=== PATIENT | male | born 1945 | race Caucasian/White ===

== ENCOUNTER → 2016-12-15 | Outpatient (CLI) | payer OTHER ==
[~2016-12-15] MED LIST: LEVA500T PO; LIPI10TA PO; NORV5TAB PO; TAMS0.4C67 PO; VENL75 PO
[2016-12-15 11:24] LABS: AUTOMATED NEUTROPHIL # 2.6 TH/MM3 (1.8-7.7); BASOPHIL % 0.9 % (0.0-2.0); EOSINOPHIL % 0.9 % (0.0-4.0); HEMATOCRIT 36.8 % (39.0-51.0); HEMO FLAGS DIFF FINAL; LYMPH % 32.4 % (9.0-44.0); LYMPHOCYTE # 1.5 TH/MM3 (1.0-4.8); MEAN CORPUSCULAR HEMOGLOBIN 31.3 PG (27.0-34.0); MEAN CORPUSCULAR HGB CONC 33.3 % (32.0-36.0); MONO % 11.1 % (0.0-8.0); NEUT % 54.7 % (16.0-70.0); PLATELET COUNT 221 TH/MM3 (150-450); RED BLOOD COUNT 3.92 MIL/MM3 (4.50-5.90); RED CELL DISTRIBUTION WIDTH 14.3 % (11.6-17.2); WHITE BLOOD COUNT 4.8 TH/MM3 (4.0-11.0)
[2016-12-15 11:56] LABS: ALKALINE PHOSPHATASE 71 U/L (45-117); ALT (GPT) 23 U/L (12-78); ANION GAP 8 MEQ/L (5-15); AST (GOT) 23 U/L (15-37); BICARBONATE 28.4 MEQ/L (21.0-32.0); BLOOD UREA NITROGEN 21 MG/DL (7-18); CHLORIDE 103 MEQ/L (98-107); GLOMERULAR FILTRATION RATE 46 ML/MIN (>89); GLUCOSE,FASTING 95 MG/DL (74-99); HDL CHOLESTEROL 62.1 MG/DL (40.0-60.0); LDL CHOLESTEROL 82 MG/DL (0-99); POTASSIUM 3.8 MEQ/L (3.5-5.1); SODIUM (NA) 139 MEQ/L (136-145); TOTAL BILIRUBIN ADULT 0.4 MG/DL (0.2-1.0)
[2016-12-15 14:20] LABS: HEMOGLOBIN A1a 1.4 %; HEMOGLOBIN A1b 0.7 %; HEMOGLOBIN F 0.9 %; HEMOGLOBIN LA1C 2.3 %; HEMOGLOBIN P3 3.8 %
== END ==
LOC: PLAB 08:41
PROVIDERS: ATTEND Family Medicine
DX: I12.9 Hypertensive chronic kidney disease with stage 1 through stage 4 chronic kidney disease, or unspecified chronic kidney disease (principal); N18.3 Chronic kidney disease, stage 3 (moderate); E78.5 Hyperlipidemia, unspecified
CPT/HCPCS: 36415; 80053; 80061; 83036; 84443; 85025

== ENCOUNTER → 2017-02-02 | Outpatient (CLI) | payer OTHER | LOC: PLAB 09:16 | PROVIDERS: ATTEND Urology | DX: C61 Malignant neoplasm of prostate (principal) | CPT/HCPCS: 84153 ==

== ENCOUNTER → 2017-02-13 | Outpatient (CLI) | payer OTHER ==
[2017-02-13 13:52] LABS: AUTOMATED NEUTROPHIL # 4.6 TH/MM3 (1.8-7.7); BASOPHIL % 0.6 % (0.0-2.0); EOSINOPHIL # 0.1 TH/MM3 (0-0.4); EOSINOPHIL % 0.8 % (0.0-4.0); HEMO FLAGS DIFF FINAL; LYMPH % 26.4 % (9.0-44.0); LYMPHOCYTE # 1.9 TH/MM3 (1.0-4.8); MEAN CELL VOLUME 93.2 FL (80.0-100.0); MEAN CORPUSCULAR HGB CONC 34.3 % (32.0-36.0); MONO % 10.1 % (0.0-8.0); NEUT % 62.1 % (16.0-70.0); PLATELET COUNT 239 TH/MM3 (150-450); RED BLOOD COUNT 3.75 MIL/MM3 (4.50-5.90); RED CELL DISTRIBUTION WIDTH 13.9 % (11.6-17.2); WHITE BLOOD COUNT 7.4 TH/MM3 (4.0-11.0)
[2017-02-13 13:58] LABS: BLOOD, URINE TRACE (NEG); GLUCOSE,URINE NEG (NEG); GRANULAR CAST, URINE 3 /lpf; HYALINE CAST, URINE 3 /lpf (RARE); KETONE, URINE NEG (NEG); MUCUS URINE FEW /lpf (OCC); NITRITE,URINE NEG (NEG); PH, URINE 5.5 (5.0-8.5); URINE COLOR YELLOW (YELLW/STRAW)
[2017-02-13 14:10] LABS: ANION GAP 7 MEQ/L (5-15); AST (GOT) 8 U/L (15-37); BICARBONATE 26.8 MEQ/L (21.0-32.0); BLOOD UREA NITROGEN 17 MG/DL (7-18); CHLORIDE 103 MEQ/L (98-107); GLOMERULAR FILTRATION RATE 50 ML/MIN (>89); GLUCOSE,FASTING 72 MG/DL (74-99); POTASSIUM 4.4 MEQ/L (3.5-5.1); SODIUM (NA) 137 MEQ/L (136-145); URIC ACID 6.1 MG/DL (2.6-7.2)
[2017-02-13 14:11] LABS: ALT (GPT) 14 U/L (12-78)
[2017-02-13 14:13] LABS: ALKALINE PHOSPHATASE 70 U/L (45-117); TOTAL BILIRUBIN ADULT 0.5 MG/DL (0.2-1.0)
[2017-02-13 14:15] LABS: AMYLASE 194 U/L (25-115)
== END ==
LOC: CLAB 12:45
PROVIDERS: ATTEND Family Medicine
DX: R10.9 Unspecified abdominal pain (principal); N18.3 Chronic kidney disease, stage 3 (moderate); R82.90 Unspecified abnormal findings in urine; Z51.81 Encounter for therapeutic drug level monitoring; Z87.39 Personal history of other diseases of the musculoskeletal system and connective tissue
CPT/HCPCS: 36415; 80053; 81001; 82150; 83690; 84550; 85025; 87086

== ENCOUNTER → 2017-02-18 | Outpatient (CLI) | payer OTHER ==
[2017-02-18 11:29] LABS: CHLORIDE 107 MEQ/L (98-107); POTASSIUM 4.6 MEQ/L (3.5-5.1); SODIUM (NA) 143 MEQ/L (136-145)
[2017-02-18 11:37] LABS: AMYLASE 63 U/L (25-115); ANION GAP 6 MEQ/L (5-15); BICARBONATE 30.2 MEQ/L (21.0-32.0); BLOOD UREA NITROGEN 24 MG/DL (7-18)
[2017-02-18 11:39] LABS: AST (GOT) 34 U/L (15-37)
[2017-02-18 11:40] LABS: ALT (GPT) 31 U/L (12-78); GLOMERULAR FILTRATION RATE 50 ML/MIN (>89); TOTAL BILIRUBIN ADULT 0.3 MG/DL (0.2-1.0)
[2017-02-18 11:42] LABS: ALKALINE PHOSPHATASE 69 U/L (45-117)
== END ==
LOC: PLAB 10:15
PROVIDERS: ATTEND Family Medicine
DX: R74.8 Abnormal levels of other serum enzymes (principal); K57.92 Diverticulitis of intestine, part unspecified, without perforation or abscess without bleeding; N18.3 Chronic kidney disease, stage 3 (moderate); Z51.81 Encounter for therapeutic drug level monitoring
CPT/HCPCS: 80053; 82150; 83690

== ENCOUNTER → 2017-05-13 | Outpatient (CLI) | payer OTHER ==
[~2017-05-13] VITALS: Ht 185.4 cm; Wt 82.4 kg
[~2017-05-13] MED LIST changes: +AMLO5TAB2 PO; +ATOR10TA15 PO; +CHLORHEXIDINE GLUCONATE 2 % 1 PACK (2 CLOTHS) TOPICAL PRN; +DEXTROSE 5% IN WATE 1000ML INJ 1,000 ML IV SCH; +INSULIN HUMAN REGULAR 1,000 UNITS/10 ML VIAL SQ PRN; +LACTATED RINGER'S 1000 ML IV PRN; -LEVA500T PO; -LIPI10TA PO; +METOPROLOL TARTRATE 25 MG TAB PO PRN; -NORV5TAB PO; +POVIDONE IODINE 5% (ANTISEPSIS KIT) 4 APPLICATIONS EACH NARE PRN; +PROPOFOL 200 MG/20 ML AMP IV PUSH ONE; +SODIUM CHLORID 0.9% 500 ML IV PRN; -TAMS0.4C67 PO; -VENL75 PO; +VENL75TA PO
--- NOTE | 2017-05-13 10:49 | PD.HP.UP ---
H&P Update Note The Pre-Admit History and Physical Examination regarding the above named patient was reviewed (including, but not limited to, vital signs, heart, lungs, co-morbid conditions), and upon re-examination it is noted that: the patient's condition has not significantly changed since the last examination. Evaristo Plaza MD May 13, 2017 10:49
[2017-05-13 13:10] VITALS: BP 131/78; PULSE 77; RESP 16; TEMP 97.2; O2SAT 99
--- NOTE | 2017-05-13 20:36 | EKG ---
Date Performed: 05/13/2017 Time Performed: 10:42:37 PTAGE: 71 years EKG: Sinus rhythm NORMAL ECG PREVIOUS TRACING : 08/16/2014 13.54 Compared to prior tracing no significant change DOCTOR: Sergio Willams Interpretating Date/Time 05/13/2017 20:35:11
--- NOTE | 2017-05-14 14:25 | MR ---
cc: MARQUIS GONZALEZ M.D., GEORGE MD DATE: May 13, 2017 PREOPERATIVE DIAGNOSIS History of polyps colon cancer screening. PROCEDURE Colonoscopy to cecum. POSTOPERATIVE DIAGNOSIS 1. Normal cecum, ileocecal valve. 2. Diverticulosis rectosigmoid left colon. 3. History of colon polyps. SURGEON Dr. Gonzalez PROCEDURE The patient was placed in the left lateral decubitus position. After adequate anesthesia sedation rectal exam confirmed the emptiness of rectal vault. Olympus colonoscope was introduced into rectum and advanced easily under direct vision to the proximal colon until the cecum was identified ileocecal valve was normal. There were no vascular maladies noted in the cecum. Colonoscope was then gradually withdrawn visualizing mucosal surface throughout the distal colon. No polyps seen. In the rectosigmoid there were some diverticulosis was some mild inflammatory changes but no luminal narrowing or obstruction. Some exudate was seen on the bowel, distal rectosigmoid appeared normal. The patient tolerated the procedure quite well and was brought to recovery room in stable condition. The sponge and needle counts were correct at the end of the procedure. MD MIRANDA Melara/cathy /1:54 PM /2:16 PM
--- NOTE | 2017-06-15 08:19 | HHI.PR ---
Subjective Remarks C/R Surg Pt stable post colonoscopy A/P Assessment and Plan Imp: Dc to home RTO 3 - 4 weeks Evaristo Plaza MD Jun 15, 2017 08:19
== END ==
LOC: HSDC 10:01
PROVIDERS: ATTEND Colon & Rectal Surgery
DX: Z12.11 Encounter for screening for malignant neoplasm of colon (principal); Z86.010 Personal history of colon polyps; K57.30 Diverticulosis of large intestine without perforation or abscess without bleeding; Z01.810 Encounter for preprocedural cardiovascular examination
CPT/HCPCS: 00810; 45378; 93005; J7120

== ENCOUNTER → 2018-01-20 | Outpatient (CLI) | payer OTHER ==
[~2018-01-20] MED LIST changes: -CHLORHEXIDINE GLUCONATE 2 % 1 PACK (2 CLOTHS) TOPICAL PRN; -DEXTROSE 5% IN WATE 1000ML INJ 1,000 ML IV SCH; -INSULIN HUMAN REGULAR 1,000 UNITS/10 ML VIAL SQ PRN; -LACTATED RINGER'S 1000 ML IV PRN; -METOPROLOL TARTRATE 25 MG TAB PO PRN; -POVIDONE IODINE 5% (ANTISEPSIS KIT) 4 APPLICATIONS EACH NARE PRN; -PROPOFOL 200 MG/20 ML AMP IV PUSH ONE; -SODIUM CHLORID 0.9% 500 ML IV PRN
[2018-01-20 13:47] LABS: AUTOMATED NEUTROPHIL # 2.2 TH/MM3 (1.8-7.7); BASOPHIL % 0.7 % (0.0-2.0); EOSINOPHIL % 0.9 % (0.0-4.0); HEMATOCRIT 37.8 % (39.0-51.0); HEMOGLOBIN 12.9 GM/DL (13.0-17.0); LYMPH % 37.4 % (9.0-44.0); LYMPHOCYTE # 1.6 TH/MM3 (1.0-4.8); MEAN CELL VOLUME 92.7 FL (80.0-100.0); MEAN CORPUSCULAR HEMOGLOBIN 31.5 PG (27.0-34.0); MEAN PLATELET VOLUME 7.8 FL (7.0-11.0); MONO % 9.5 % (0.0-8.0); MONOCYTE # 0.4 TH/MM3 (0-0.9); NEUT % 51.5 % (16.0-70.0); PLATELET COUNT 252 TH/MM3 (150-450); RED BLOOD COUNT 4.08 MIL/MM3 (4.50-5.90); RED CELL DISTRIBUTION WIDTH 14.1 % (11.6-17.2); WHITE BLOOD COUNT 4.2 TH/MM3 (4.0-11.0)
[2018-01-20 13:53] LABS: ALBUMIN 3.8 GM/DL (3.4-5.0); AST (GOT) 15 U/L (15-37); BICARBONATE 26.2 MEQ/L (21.0-32.0); BLOOD UREA NITROGEN 31 MG/DL (7-18); CALCIUM 8.9 MG/DL (8.5-10.1); CHLORIDE 108 MEQ/L (98-107); CHOLESTEROL 174 MG/DL (120-200); CREATININE 1.45 MG/DL (0.60-1.30); GLOMERULAR FILTRATION RATE 48 ML/MIN (>89); SODIUM (NA) 142 MEQ/L (136-145)
[2018-01-20 14:00] LABS: ALKALINE PHOSPHATASE 56 U/L (45-117); ALT (GPT) 19 U/L (12-78); CHOLESTEROL/ HDL RATIO 3.15 RATIO; GLUCOSE,FASTING 92 MG/DL (74-99); HDL CHOLESTEROL 55.2 MG/DL (40.0-60.0); LDL CHOLESTEROL 98 MG/DL (0-99); TOTAL BILIRUBIN ADULT 0.4 MG/DL (0.2-1.0); TOTAL PROTEIN 7.4 GM/DL (6.4-8.2); TRIGLYCERIDES 103 MG/DL (42-150)
== END ==
LOC: PLAB 10:02
PROVIDERS: ATTEND Family Medicine
DX: R74.8 Abnormal levels of other serum enzymes (principal); N18.3 Chronic kidney disease, stage 3 (moderate); E78.5 Hyperlipidemia, unspecified; C61 Malignant neoplasm of prostate
CPT/HCPCS: 36415; 80053; 80061; 83690; 84153; 85025